=== PATIENT | male | born 1990 | race Caucasian/White ===

== ENCOUNTER 2023-06-23 16:41 | Emergency (ER) | payer BC ==
[2023-06-23] MEDS ORDERED: Ondansetron 4 MG/2 ML SDV IVPUSH ONE (17:58)
[2023-06-23] MEDS ORDERED: Diphtheria,Pertussis(Acell),Tetanus Vaccine 0.5 ML Syringe IM ONE (17:58)
[2023-06-23] MEDS ORDERED: cefTRIAXone 1 GM in Sodium Chloride 0.9% 50 ML IV ONE (17:58)
[2023-06-23] MEDS ORDERED: Lidocaine 1% 5 ML VIAL INJECT ONE (17:58)
[2023-06-23] MEDS ORDERED: Morphine 4 MG/ML Syringe IVPUSH ONE (17:58)
== END 2023-06-23 19:16 | disposition home or self-care (01) ==
LOC: MW.ED 16:41
DX: S62.616A Displaced fracture of proximal phalanx of right little finger, initial encounter for closed fracture (principal); Z23 Encounter for immunization; W23.0XXA Caught, crushed, jammed, or pinched between moving objects, initial encounter
CPT/HCPCS: 12002; 73130; 90471; 90715; 96365; 96375; 99283; J0696; J2270; J2405; J3490; 99284

== ENCOUNTER 2025-05-17 07:56 | Emergency (ER) | payer BC ==
[2025-05-17] MEDS: Acetaminophen/HYDROcodone 325-5 MG Tab PO ONE (08:43)
[2025-05-17] MEDS: Dexamethasone Sod Phos Preservative Free 10 MG/ML Vial IM ONE (08:44)
== END 2025-05-17 13:11 | disposition home or self-care (01) ==
LOC: MW.ED 07:56
DX: M54.41 Lumbago with sciatica, right side (principal); G89.29 Other chronic pain
CPT/HCPCS: 72148; 96372; 99283; A9270; J1100